=== PATIENT | male | born 1950 | race Caucasian/White ===

== ENCOUNTER 2018-08-13 19:04 | Inpatient (IN) | payer OTHER ==
[~2018-08-13] VITALS: Ht 177.8 cm; Wt 115.7 kg
[~2018-08-13 19:04] MED LIST: ASPI500T13 PO; ATOR40TA PO; CITRACAL CALCIUM PO; CLOP75TA PO; CLOP75TA52 PO; EZET10TA18 PO; FOLI0.8T2 PO; FOLIC ACID PO; FURO-92 PO; LEVO100C2 PO; LEVO100T5 PO; LIRA0.6P; LIRA0.6P PO; METF10002 PO; METO50TA4 PO; METO50TA82 PO; MULT-658 PO; NIAC1000 PO; PIOG45TA20 PO; PIOG45TA4 PO; POTA10TA PO; POTA20TA14 PO; SAW500CA PO; TADA10TA PO; TRAN4TAB11 PO; ZINC50TA44 PO; [UNRECOGNIZED DRUG - OTHER] PO; [UNRECOGNIZED DRUG - OTHER] PO
--- NOTE | 2018-08-13 19:08 | NUR ---
ERP AT BEDSIDE.
[2018-08-13] MEDS ORDERED: ENOXAPARIN 100 MG/ML SQ ONE (19:30)
[2018-08-13] MEDS ORDERED: SODIUM CHLORIDE FLUSH 10ML SYR IVF ONE (19:30)
--- NOTE | 2018-08-13 19:32 | NUR ---
PORTABLE CXR DONE AT BEDSIDE.
[2018-08-13 19:36] LABS: BASOPHILS # (AUTO) 0.05 x10^3/uL (0-0.1); BASOPHILS % (AUTO) 1 % (0-1); EOSINOPHILS # (AUTO) 0.19 x10^3/uL (0-0.4); EOSINOPHILS % (AUTO) 2 % (1-7); LYMPHOCYTES # (AUTO) 3.99 x10^3/uL (1-3.4); LYMPHOCYTES % (AUTO) 37 % (22-44); MD NO; MEAN CORPUSCULAR HEMOGLOBIN 32.5 pg (27.5-34.5); MEAN CORPUSCULAR HGB CONC 33.6 g/dL (33.2-36.2); MEAN CORPUSCULAR VOLUME 96.8 fL (81-97); MEAN PLATELET VOLUME 8.7 fL (7.4-10.4); MONOCYTES # (AUTO) 1.17 x10^3/uL (0.2-0.8); MONOCYTES % (AUTO) 11 % (2-9); NEUTROPHILS # (AUTO) 5.29 x10^3/uL (1.8-6.8); NEUTROPHILS % (AUTO) 50 % (42-75); PLATELET COUNT 156 x10^3/uL (130-400); RED BLOOD COUNT 5.44 x10^6/uL (4.38-5.82); RED CELL DISTRIBUTION WIDTH 14.5 % (9.4-14.8)
[2018-08-13 19:48] LABS: ALANINE AMINOTRANSFERASE 55 U/L (12-78); ALBUMIN 4.2 g/dL (3.4-5.0); ANION GAP 11 mmol/L (5-15); CALCIUM 10.3 mg/dL (8.5-10.1); CHLORIDE 105 mmol/L (98-107); CREATININE 1.12 mg/dL (0.7-1.3)
[2018-08-13 19:52] LABS: ALKALINE PHOSPHATASE 86 U/L (45-117); BILIRUBIN,TOTAL 0.7 mg/dL (0.2-1.0); TOTAL PROTEIN 8.2 g/dL (6.4-8.2); TROPONIN I < 0.015 ng/mL (0.000-0.045)
[2018-08-13 19:56] LABS: INTERNATIONAL NORMALIZED RATIO 1.04 (0.93-1.1)
[2018-08-13] MEDS ORDERED: EMPA25TA PO (20:36)
[2018-08-13] MEDS ORDERED: CHOL100012 PO (20:36)
[2018-08-13] MEDS ORDERED: ASCO10004 PO (20:36)
--- NOTE | 2018-08-13 20:40 | NUR ---
HOSPITALIST AT BEDSIDE.
[2018-08-13] MEDS ORDERED: POLYETHYLENE GLYCOL 17 GM PACKET PO PRN (21:30)
[2018-08-13] MEDS ORDERED: NITROGLYCERIN 0.4 MG BOTTLE (25 TABS) SL PRN (21:30)
[2018-08-13] MEDS ORDERED: BISACODYL 10 MG SUPP PR PRN (21:30)
[2018-08-13] MEDS ORDERED: FUROSEMIDE 40 MG PO SCH (21:30)
[2018-08-13] MEDS ORDERED: morphine SULFATE 10 MG/ML, 1ML IVPush PRN (21:30)
[2018-08-13] MEDS ORDERED: ONDANSETRON 2MG/ML, 2ML IVPush PRN (21:30)
[2018-08-13 21:57] LABS: HEMOGLOBIN A1C 7.8 % (4.2-6.3)
[2018-08-13] MEDS: ATORVASTATIN 40 MG TABLET PO SCH (22:37)
[2018-08-13] MEDS: SODIUM CHLORIDE FLUSH 10ML SYR IVF SCH (22:38)
[2018-08-13] MEDS: METOPROLOL TARTRATE 50 MG TABLET PO SCH (22:38)
[2018-08-13] MEDS: NIACIN 500 MG TABLET.ER PO SCH (22:39)
[2018-08-13] MEDS: INSULIN LISPRO 100 UNITS/ML, PEN SQ-INSULIN SCH (23:20)
[2018-08-14 00:24] VITALS: BP 102/63
[2018-08-14] MEDS: SODIUM CHLORIDE 0.9% 1,000 ML IV SCH (02:01)
[2018-08-14 02:52] LABS: TROPONIN I < 0.015 ng/mL (0.000-0.045)
[2018-08-14 05:54] LABS: TROPONIN I < 0.015 ng/mL (0.000-0.045)
[2018-08-14] MEDS: LEVOTHYROXINE 125 MCG TABLET PO SCH (06:06)
[2018-08-14] MEDS: ASPIRIN 325 MG TABLET EC PO SCH (06:06)
[2018-08-14 06:07] VITALS: BP 121/78
[2018-08-14 06:26] LABS: ALANINE AMINOTRANSFERASE 42 U/L (12-78); ALBUMIN 3.7 g/dL (3.4-5.0); ANION GAP 13 mmol/L (5-15); CALCIUM 8.9 mg/dL (8.5-10.1); CHLORIDE 105 mmol/L (98-107); CREATININE 1.12 mg/dL (0.7-1.3)
[2018-08-14 06:28] LABS: ALKALINE PHOSPHATASE 57 U/L (45-117); BILIRUBIN,TOTAL 0.9 mg/dL (0.2-1.0)
[2018-08-14 06:49] LABS: BASOPHILS # (AUTO) 0.05 x10^3/uL (0-0.1); BASOPHILS % (AUTO) 1 % (0-1); EOSINOPHILS # (AUTO) 0.23 x10^3/uL (0-0.4); EOSINOPHILS % (AUTO) 2 % (1-7); LYMPHOCYTES # (AUTO) 3.14 x10^3/uL (1-3.4); LYMPHOCYTES % (AUTO) 31 % (22-44); MD NO; MEAN CORPUSCULAR HEMOGLOBIN 32.6 pg (27.5-34.5); MEAN CORPUSCULAR HGB CONC 33.6 g/dL (33.2-36.2); MONOCYTES # (AUTO) 1.14 x10^3/uL (0.2-0.8); MONOCYTES % (AUTO) 11 % (2-9); NEUTROPHILS # (AUTO) 5.73 x10^3/uL (1.8-6.8); NEUTROPHILS % (AUTO) 56 % (42-75); PLATELET COUNT 145 x10^3/uL (130-400); RED CELL DISTRIBUTION WIDTH 14.2 % (9.4-14.8)
[2018-08-14 07:00] VITALS: BP 112/67
[2018-08-14] MEDS: INSULIN LISPRO 100 UNITS/ML, PEN SQ-INSULIN SCH ×4 (07:00→21:05)
[2018-08-14] MEDS: ASCORBIC ACID 500 MG TABLET PO SCH (08:59)
[2018-08-14] MEDS: FOLIC ACID 1 MG TABLET PO SCH (08:59)
[2018-08-14] MEDS: CLOPIDOGREL 75 MG TABLET PO SCH (08:59)
[2018-08-14] MEDS: SENNA/DOCUSATE TABLET PO SCH (09:00)
[2018-08-14] MEDS: (Empagliflozin (Jardiance) 25 MG) HOMEMEDPO SCH (09:00)
[2018-08-14] MEDS: METOPROLOL TARTRATE 50 MG TABLET PO SCH ×2 (09:00→21:04)
[2018-08-14] MEDS: EZETIMIBE 10 MG TABLET PO SCH (09:00)
[2018-08-14] MEDS ORDERED: NIACIN 2000 MG SCH (09:00)
[2018-08-14] MEDS: CHOLECALCIFEROL 1,000 UNIT TABLET PO SCH ×2 (09:00)
[2018-08-14] MEDS: SODIUM CHLORIDE FLUSH 10ML SYR IVF SCH ×2 (09:07→21:04)
[2018-08-14] MEDS ORDERED: SODIUM CHLORIDE 0.9% 1,000 ML IV ONE (11:13)
[2018-08-14 13:15] VITALS: BP 108/73
[2018-08-14] MEDS ORDERED: MIDAZOLAM 1 MG/ML, 5ML ONE (15:49)
[2018-08-14] MEDS ORDERED: FENTANYL PF 100 MCG/2ML ONE (15:49)
[2018-08-14] MEDS ORDERED: HEPARIN 1,000 UNITS/ML, 10ML ONE (15:49)
[2018-08-14] MEDS ORDERED: VERAPAMIL 2.5 MG/ML, 2ML ONE (15:49)
[2018-08-14] MEDS ORDERED: TICAGRELOR 90 MG TABLET ONE (15:49)
[2018-08-14] MEDS ORDERED: BIVALIRUDIN 250 MG ONE (15:49)
[2018-08-14 19:00] VITALS: BP 117/69
[2018-08-14 21:00] VITALS: BP 104/70
[2018-08-14] MEDS ORDERED: ATORVASTATIN 40 MG TABLET PO SCH (21:00)
[2018-08-14] MEDS ORDERED: NIACIN 500 MG TABLET.ER PO SCH (21:00)
[2018-08-14] MEDS: ATORVASTATIN 40 MG TABLET PO SCH (21:04)
[2018-08-14] MEDS: NIACIN 500 MG TABLET.ER PO SCH (21:04)
[2018-08-15 00:15] VITALS: BP 104/63
[2018-08-15] MEDS: SODIUM CHLORIDE 0.9% 1,000 ML IV SCH ×2 (01:19→15:45)
[2018-08-15] MEDS: LEVOTHYROXINE 125 MCG TABLET PO SCH (06:17)
[2018-08-15] MEDS: ASPIRIN 325 MG TABLET EC PO SCH (06:17)
[2018-08-15 07:05] VITALS: BP 118/70
[2018-08-15] MEDS: INSULIN LISPRO 100 UNITS/ML, PEN SQ-INSULIN SCH ×4 (08:23→20:48)
[2018-08-15] MEDS ORDERED: SODIUM CHLORIDE 0.9% 1,000 ML IV ONE (08:53)
[2018-08-15] MEDS: CHOLECALCIFEROL 1,000 UNIT TABLET PO SCH ×2 (09:00→09:14)
[2018-08-15] MEDS: CLOPIDOGREL 75 MG TABLET PO SCH (09:14)
[2018-08-15] MEDS: SENNA/DOCUSATE TABLET PO SCH (09:14)
[2018-08-15] MEDS: FOLIC ACID 1 MG TABLET PO SCH (09:14)
[2018-08-15] MEDS: EZETIMIBE 10 MG TABLET PO SCH (09:14)
[2018-08-15] MEDS: ASCORBIC ACID 500 MG TABLET PO SCH (09:14)
[2018-08-15] MEDS: METOPROLOL TARTRATE 50 MG TABLET PO SCH ×2 (09:15→20:41)
[2018-08-15] MEDS: SODIUM CHLORIDE FLUSH 10ML SYR IVF SCH ×2 (09:15→20:41)
[2018-08-15] MEDS ORDERED: FENTANYL PF 100 MCG/2ML ONE ×2 (09:30→09:56)
[2018-08-15] MEDS ORDERED: VERAPAMIL 2.5 MG/ML, 2ML ONE (09:31)
[2018-08-15] MEDS ORDERED: LIDOCAINE 2%, 20ML ONE (09:31)
[2018-08-15] MEDS ORDERED: HEPARIN 1,000 UNITS/ML, 10ML ONE (09:31)
[2018-08-15] MEDS ORDERED: NITROGLYCERIN 5 MG/ML, 10ML ONE (09:31)
[2018-08-15] MEDS ORDERED: TICAGRELOR 90 MG TABLET ONE (09:31)
[2018-08-15] MEDS ORDERED: BIVALIRUDIN 250 MG ONE ×3 (09:31→10:04)
[2018-08-15] MEDS ORDERED: MIDAZOLAM 1 MG/ML, 2ML ONE (09:42)
[2018-08-15] MEDS ORDERED: MIDAZOLAM 1 MG/ML, 5ML ONE (09:56)
[2018-08-15] MEDS ORDERED: NITROGLYCERIN 0.4 MG BOTTLE (25 TABS) SL ONE (11:46)
[2018-08-15] MEDS: (Empagliflozin (Jardiance) 25 MG) HOMEMEDPO SCH (12:00)
[2018-08-15] MEDS ORDERED: MORPHINE SULFATE 4 MG/ML, 1ML ONE (12:27)
[2018-08-15] MEDS ORDERED: MORPHINE SULFATE 4 MG/ML, 1ML IV PRN (13:00)
[2018-08-15] MEDS: ISOSORBIDE MONONITRATE ER 60 MG TABLET PO SCH (13:13)
[2018-08-15] MEDS: NIACIN 500 MG TABLET.ER PO SCH (20:42)
[2018-08-15] MEDS: ATORVASTATIN 40 MG TABLET PO SCH (20:42)
[2018-08-16] MEDS: ACETAMINOPHEN 325 MG TABLET PO PRN (00:32)
[2018-08-16] MEDS: SODIUM CHLORIDE 0.9% 1,000 ML IV SCH ×3 (00:32→22:38)
[2018-08-16 04:00] VITALS: BP 95/52
[2018-08-16 04:45] LABS: ANION GAP 12 mmol/L (5-15); CALCIUM 8.3 mg/dL (8.5-10.1); CHLORIDE 109 mmol/L (98-107)
[2018-08-16 04:46] LABS: CREATININE 0.91 mg/dL (0.7-1.3)
[2018-08-16 04:53] LABS: BASOPHILS # (AUTO) 0.03 x10^3/uL (0-0.1); BASOPHILS % (AUTO) 0 % (0-1); EOSINOPHILS # (AUTO) 0.18 x10^3/uL (0-0.4); EOSINOPHILS % (AUTO) 2 % (1-7); LYMPHOCYTES # (AUTO) 2.14 x10^3/uL (1-3.4); LYMPHOCYTES % (AUTO) 24 % (22-44); MD NO; MEAN CORPUSCULAR HEMOGLOBIN 32.9 pg (27.5-34.5); MEAN CORPUSCULAR HGB CONC 33.9 g/dL (33.2-36.2); MEAN CORPUSCULAR VOLUME 97.1 fL (81-97); MEAN PLATELET VOLUME 8.7 fL (7.4-10.4); MONOCYTES # (AUTO) 1.16 x10^3/uL (0.2-0.8); MONOCYTES % (AUTO) 13 % (2-9); NEUTROPHILS # (AUTO) 5.49 x10^3/uL (1.8-6.8); NEUTROPHILS % (AUTO) 61 % (42-75); PLATELET COUNT 131 x10^3/uL (130-400); RED BLOOD COUNT 4.49 x10^6/uL (4.38-5.82); RED CELL DISTRIBUTION WIDTH 14.3 % (9.4-14.8)
[2018-08-16] MEDS: LEVOTHYROXINE 125 MCG TABLET PO SCH (05:57)
[2018-08-16] MEDS: ASPIRIN 325 MG TABLET EC PO SCH (06:04)
[2018-08-16] MEDS: INSULIN LISPRO 100 UNITS/ML, PEN SQ-INSULIN SCH ×4 (06:43→20:23)
[2018-08-16] MEDS: CHOLECALCIFEROL 1,000 UNIT TABLET PO SCH ×2 (07:39→07:53)
[2018-08-16] MEDS: SENNA/DOCUSATE TABLET PO SCH (07:39)
[2018-08-16] MEDS: METOPROLOL TARTRATE 50 MG TABLET PO SCH ×2 (07:51→20:22)
[2018-08-16] MEDS: ASCORBIC ACID 500 MG TABLET PO SCH (07:51)
[2018-08-16] MEDS: EZETIMIBE 10 MG TABLET PO SCH (07:51)
[2018-08-16] MEDS: FOLIC ACID 1 MG TABLET PO SCH (07:52)
[2018-08-16] MEDS: ISOSORBIDE MONONITRATE ER 60 MG TABLET PO SCH (07:52)
[2018-08-16] MEDS: SODIUM CHLORIDE FLUSH 10ML SYR IVF SCH ×2 (07:52→20:23)
[2018-08-16] MEDS: (Empagliflozin (Jardiance) 25 MG) HOMEMEDPO SCH (07:52)
[2018-08-16] MEDS ORDERED: MAGNESIUM SULFATE PMX 4GM/100M 100 ML IV ONE (08:00)
[2018-08-16 08:56] VITALS: BP 96/54
[2018-08-16 15:07] VITALS: BP 108/63
[2018-08-16 20:02] VITALS: BP 135/70
[2018-08-16] MEDS: NIACIN 500 MG TABLET.ER PO SCH (20:22)
[2018-08-16] MEDS: ATORVASTATIN 40 MG TABLET PO SCH (20:22)
[2018-08-17 01:22] VITALS: BP 112/66
[2018-08-17] MEDS ORDERED: LEVOTHYROXINE 25 MCG TABLET ONE (05:40)
[2018-08-17] MEDS ORDERED: LEVOTHYROXINE 100 MCG TABLET ONE (05:40)
[2018-08-17] MEDS: SODIUM CHLORIDE 0.9% 1,000 ML IV SCH (05:54)
[2018-08-17] MEDS: ASPIRIN 325 MG TABLET EC PO SCH (05:54)
[2018-08-17] MEDS: LEVOTHYROXINE 125 MCG TABLET PO SCH (05:54)
[2018-08-17] MEDS: INSULIN LISPRO 100 UNITS/ML, PEN SQ-INSULIN SCH ×4 (07:00→20:27)
[2018-08-17 07:40] VITALS: BP 110/65
[2018-08-17] MEDS: CHOLECALCIFEROL 1,000 UNIT TABLET PO SCH ×2 (09:00→09:23)
[2018-08-17] MEDS: (Empagliflozin (Jardiance) 25 MG) HOMEMEDPO SCH (09:00)
[2018-08-17] MEDS: SENNA/DOCUSATE TABLET PO SCH (09:00)
[2018-08-17] MEDS: ISOSORBIDE MONONITRATE ER 60 MG TABLET PO SCH (09:21)
[2018-08-17] MEDS: FOLIC ACID 1 MG TABLET PO SCH (09:22)
[2018-08-17] MEDS: METOPROLOL TARTRATE 50 MG TABLET PO SCH ×2 (09:22→20:23)
[2018-08-17] MEDS: ASCORBIC ACID 500 MG TABLET PO SCH (09:23)
[2018-08-17] MEDS: EZETIMIBE 10 MG TABLET PO SCH (09:23)
[2018-08-17] MEDS: SODIUM CHLORIDE FLUSH 10ML SYR IVF SCH ×2 (09:26→20:24)
[2018-08-17 15:59] VITALS: BP 101/64
[2018-08-17] MEDS: ACETAMINOPHEN 325 MG TABLET PO PRN (17:10)
[2018-08-17 18:49] VITALS: BP 105/61
[2018-08-17] MEDS: ATORVASTATIN 40 MG TABLET PO SCH (20:23)
[2018-08-17] MEDS: NIACIN 500 MG TABLET.ER PO SCH (20:23)
[2018-08-18 00:31] VITALS: BP 98/61
[2018-08-18] MEDS: ACETAMINOPHEN 325 MG TABLET PO PRN ×2 (02:57→14:43)
[2018-08-18] MEDS ORDERED: LEVOTHYROXINE 100 MCG TABLET ONE (05:57)
[2018-08-18] MEDS ORDERED: LEVOTHYROXINE 25 MCG TABLET ONE (05:57)
[2018-08-18] MEDS: ASPIRIN 325 MG TABLET EC PO SCH (05:58)
[2018-08-18] MEDS: LEVOTHYROXINE 125 MCG TABLET PO SCH (05:59)
[2018-08-18 06:44] VITALS: BP 123/71
[2018-08-18] MEDS: INSULIN LISPRO 100 UNITS/ML, PEN SQ-INSULIN SCH ×4 (07:00→21:37)
[2018-08-18] MEDS: EZETIMIBE 10 MG TABLET PO SCH (08:04)
[2018-08-18] MEDS: ASCORBIC ACID 500 MG TABLET PO SCH (08:05)
[2018-08-18] MEDS: CHOLECALCIFEROL 1,000 UNIT TABLET PO SCH ×2 (08:05→08:13)
[2018-08-18] MEDS: ISOSORBIDE MONONITRATE ER 60 MG TABLET PO SCH (08:05)
[2018-08-18] MEDS: METOPROLOL TARTRATE 50 MG TABLET PO SCH ×2 (08:06→21:32)
[2018-08-18] MEDS: FOLIC ACID 1 MG TABLET PO SCH (08:06)
[2018-08-18] MEDS: SODIUM CHLORIDE FLUSH 10ML SYR IVF SCH ×2 (08:08→21:32)
[2018-08-18] MEDS: (Empagliflozin (Jardiance) 25 MG) HOMEMEDPO SCH (08:09)
[2018-08-18] MEDS: SENNA/DOCUSATE TABLET PO SCH (08:13)
[2018-08-18 13:12] VITALS: BP 121/65
[2018-08-18 19:40] VITALS: BP 116/65
[2018-08-18] MEDS: ATORVASTATIN 40 MG TABLET PO SCH (21:32)
[2018-08-18] MEDS: NIACIN 500 MG TABLET.ER PO SCH (21:32)
[2018-08-19 02:03] VITALS: BP 98/62
[2018-08-19] MEDS: LEVOTHYROXINE 125 MCG TABLET PO SCH (06:44)
[2018-08-19] MEDS: ASPIRIN 325 MG TABLET EC PO SCH (06:44)
[2018-08-19 07:19] VITALS: BP 117/67
[2018-08-19] MEDS ORDERED: CEFUROXIME 1.5 GM in SODIUM CHLORIDE 0.9% 50 ML IVPB PRN (07:30)
[2018-08-19] MEDS ORDERED: DEXMEDETOMIDINE 200 MCG in SODIUM CHLORIDE 0.9% 48 ML IV SCH (07:30)
[2018-08-19] MEDS ORDERED: REGULAR INSULIN 62.5 UNITS in SODIUM CHLORIDE 0.9% 249.375 ML IV PRN (07:30)
[2018-08-19] MEDS ORDERED: EPINEPHRINE 2 MG in SODIUM CHLORIDE 0.9% 248 ML IV SCH (07:30)
[2018-08-19] MEDS ORDERED: POTASSIUM CHLORIDE 80 MEQ, SODIUM BICARBONATE 8.4% 10 MEQ, MAGNESIUM SULFATE 0.5 GM, LI... IV PRN (07:30)
[2018-08-19] MEDS ORDERED: MANNITOL PMX 20% 500 ML IVPB PRN (07:30)
[2018-08-19] MEDS ORDERED: PHENYLEPHRINE 10 MG in SODIUM CHLORIDE 0.9% 249 ML IV PRN (07:30)
[2018-08-19] MEDS ORDERED: VANCOMYCIN 1,600 MG in SODIUM CHLORIDE 0.9% 250 ML IV PRN (07:30)
[2018-08-19] MEDS: INSULIN LISPRO 100 UNITS/ML, PEN SQ-INSULIN SCH ×4 (08:38→21:22)
[2018-08-19] MEDS: SENNA/DOCUSATE TABLET PO SCH (08:38)
[2018-08-19] MEDS: ISOSORBIDE MONONITRATE ER 60 MG TABLET PO SCH (08:39)
[2018-08-19] MEDS: METOPROLOL TARTRATE 50 MG TABLET PO SCH ×2 (08:39→21:08)
[2018-08-19] MEDS: ASCORBIC ACID 500 MG TABLET PO SCH (08:39)
[2018-08-19] MEDS: EZETIMIBE 10 MG TABLET PO SCH (08:40)
[2018-08-19] MEDS: CHOLECALCIFEROL 1,000 UNIT TABLET PO SCH ×2 (08:40)
[2018-08-19] MEDS: FOLIC ACID 1 MG TABLET PO SCH (08:40)
[2018-08-19] MEDS: SODIUM CHLORIDE FLUSH 10ML SYR IVF SCH ×3 (08:41→21:09)
[2018-08-19] MEDS: (Empagliflozin (Jardiance) 25 MG) HOMEMEDPO SCH (08:42)
[2018-08-19] MEDS ORDERED: ACETAMINOPHEN 325 MG TABLET PO PRN (13:00)
[2018-08-19] MEDS ORDERED: INSULIN LISPRO 100 UNITS/ML, PEN SQ-INSULIN SCH (13:00)
[2018-08-19 13:14] LABS: PROTHROMBIN TIME 10.6 Seconds (9.6-11.5)
[2018-08-19 13:16] LABS: ALANINE AMINOTRANSFERASE 111 U/L (12-78); ALBUMIN 3.5 g/dL (3.4-5.0); ANION GAP 10 mmol/L (5-15); CALCIUM 9.1 mg/dL (8.5-10.1); CHLORIDE 106 mmol/L (98-107)
[2018-08-19 13:19] LABS: ALKALINE PHOSPHATASE 74 U/L (45-117); BASOPHILS # (AUTO) 0.04 x10^3/uL (0-0.1); BASOPHILS % (AUTO) 1 % (0-1); BILIRUBIN,TOTAL 0.7 mg/dL (0.2-1.0); EOSINOPHILS # (AUTO) 0.24 x10^3/uL (0-0.4); EOSINOPHILS % (AUTO) 3 % (1-7); LYMPHOCYTES # (AUTO) 2.23 x10^3/uL (1-3.4); LYMPHOCYTES % (AUTO) 32 % (22-44); MD NO; MEAN CORPUSCULAR HEMOGLOBIN 32.2 pg (27.5-34.5); MEAN CORPUSCULAR HGB CONC 33.6 g/dL (33.2-36.2); MEAN PLATELET VOLUME 9.2 fL (7.4-10.4); MONOCYTES # (AUTO) 0.88 x10^3/uL (0.2-0.8); MONOCYTES % (AUTO) 13 % (2-9); NEUTROPHILS # (AUTO) 3.58 x10^3/uL (1.8-6.8); NEUTROPHILS % (AUTO) 51 % (42-75); PLATELET COUNT 147 x10^3/uL (130-400); RED BLOOD COUNT 4.96 x10^6/uL (4.38-5.82); RED CELL DISTRIBUTION WIDTH 14.1 % (9.4-14.8); TOTAL PROTEIN 7.2 g/dL (6.4-8.2)
[2018-08-19 13:37] VITALS: BP 114/70
[2018-08-19 13:45] LABS: HEMOGLOBIN A1C 8.3 % (4.2-6.3)
[2018-08-19 14:46] LABS: MICROSCOPIC NOT IND
[2018-08-19] MEDS: ACETAMINOPHEN 325 MG TABLET PO PRN (15:54)
[2018-08-19 19:50] VITALS: BP 121/72
[2018-08-19] MEDS: ATORVASTATIN 40 MG TABLET PO SCH (21:07)
[2018-08-19] MEDS: NIACIN 500 MG TABLET.ER PO SCH (21:08)
[2018-08-19] MEDS ORDERED: CHLORHEXIDINE 15 ML UDC MM PRN (22:00)
[2018-08-19] MEDS ORDERED: ALBUMIN HUMAN 5% 500 ML IV PRN (22:00)
[2018-08-19] MEDS: MUPIROCIN OINT 2%, 22GM TP SCH (22:33)
[2018-08-20 04:45] VITALS: BP 112/73
[2018-08-20] MEDS: ASPIRIN 325 MG TABLET EC PO SCH (04:47)
[2018-08-20] MEDS: INSULIN LISPRO 100 UNITS/ML, PEN SQ-INSULIN SCH ×5 (04:48→20:23)
[2018-08-20] MEDS: MUPIROCIN OINT 2%, 22GM TP SCH ×2 (04:57→20:23)
[2018-08-20] MEDS ORDERED: METOPROLOL TARTRATE 25 MG TABLET PO ONE (05:00)
[2018-08-20] MEDS: LEVOTHYROXINE 125 MCG TABLET PO SCH (05:36)
[2018-08-20] MEDS ORDERED: VANCOMYCIN 1,500 MG in SODIUM CHLORIDE 0.9% 250 ML IVPB PRN (07:30)
[2018-08-20] MEDS ORDERED: AMINOCAPROIC ACID 250 MG/ML, 20ML ONE ×2 (07:48→07:49)
[2018-08-20] MEDS ORDERED: ROCURONIUM 10MG/ML,5ML ONE ×2 (07:48)
[2018-08-20 07:49] VITALS: BP 122/72
[2018-08-20] MEDS ORDERED: PROPOFOL 10 MG/ML, 20ML ONE (07:49)
[2018-08-20] MEDS ORDERED: MIDAZOLAM 10MG/2 ML ONE (07:49)
[2018-08-20] MEDS ORDERED: FENTANYL PF 250 MCG/5ML ONE ×5 (07:50→14:13)
[2018-08-20] MEDS: ISOSORBIDE MONONITRATE ER 60 MG TABLET PO SCH (09:00)
[2018-08-20] MEDS: CHOLECALCIFEROL 1,000 UNIT TABLET PO SCH (09:00)
[2018-08-20] MEDS: METOPROLOL TARTRATE 50 MG TABLET PO SCH (09:00)
[2018-08-20] MEDS: ASCORBIC ACID 500 MG TABLET PO SCH (09:00)
[2018-08-20] MEDS: SENNA/DOCUSATE TABLET PO SCH (09:00)
[2018-08-20] MEDS: FOLIC ACID 1 MG TABLET PO SCH (09:00)
[2018-08-20] MEDS: EZETIMIBE 10 MG TABLET PO SCH (09:00)
[2018-08-20] MEDS: DOCUSATE 100 MG CAPSULE PO SCH ×2 (09:00→20:22)
[2018-08-20] MEDS: (Empagliflozin (Jardiance) 25 MG) HOMEMEDPO SCH (09:00)
[2018-08-20] MEDS: SODIUM CHLORIDE FLUSH 10ML SYR IVF SCH ×5 (09:10→20:24)
[2018-08-20] MEDS ORDERED: PAPAVERINE 30 MG/ML, 2ML ONE (09:45)
[2018-08-20] MEDS ORDERED: HEPARIN 1,000 UNITS/ML, 10ML ONE (09:45)
[2018-08-20 12:35] VITALS: BP 125/73
[2018-08-20] MEDS ORDERED: PROTAMINE SULFATE 10 MG/ML, 25ML ONE (15:22)
[2018-08-20] MEDS ORDERED: CALCIUM CHLORIDE 10%, 10ML SYR ONE (15:22)
[2018-08-20] MEDS ORDERED: SODIUM CHLORIDE 0.9% IVPB ONE (16:05)
[2018-08-20] MEDS ORDERED: DESMOPRESSIN IVPB ONE (16:05)
[2018-08-20] MEDS ORDERED: SODIUM CHLORIDE 0.9% 1,000 ML IV PRN (16:21)
[2018-08-20] MEDS ORDERED: REGULAR INSULIN 62.5 UNITS in SODIUM CHLORIDE 0.9% 249.375 ML IV PRN (16:21)
[2018-08-20] MEDS ORDERED: VASOPRESSIN 50 UNIT in SODIUM CHLORIDE 0.9% 247.5 ML IV PRN (16:21)
[2018-08-20] MEDS ORDERED: DOBUTAMINE 250 MG in SODIUM CHLORIDE 0.9% 230 ML IV PRN (16:21)
[2018-08-20] MEDS ORDERED: NITROGLYCERIN/D5W PMX 250 ML IV PRN (16:21)
[2018-08-20] MEDS ORDERED: DEXMEDETOMIDINE 200 MCG in SODIUM CHLORIDE 0.9% 48 ML IV PRN (16:21)
[2018-08-20] MEDS ORDERED: INSULIN REGULAR 100 UNITS/ML, 3ML VIAL IVPush PRN (16:30)
[2018-08-20] MEDS ORDERED: EPINEPHRINE 2 MG in SODIUM CHLORIDE 0.9% 248 ML IV PRN (16:30)
[2018-08-20] MEDS ORDERED: ACETAMINOPHEN 650 MG SUPP PR PRN (16:30)
[2018-08-20] MEDS ORDERED: ONDANSETRON 2MG/ML, 2ML IVPush PRN (16:30)
[2018-08-20] MEDS ORDERED: DEXTROSE 50%, 50ML SYRINGE IVPush PRN (16:30)
[2018-08-20] MEDS ORDERED: BISACODYL 10 MG SUPP PR PRN (16:30)
[2018-08-20] MEDS ORDERED: BISACODYL 5 MG EC TABLET PO PRN (16:30)
[2018-08-20] MEDS ORDERED: PROCHLORPERAZINE 5 MG/ML, 2ML IVPush PRN (16:30)
[2018-08-20] MEDS ORDERED: GLUCAGON 1 MG IM PRN (16:30)
[2018-08-20] MEDS: KSCALE TO 4.5 IV SCH ×2 (16:30→22:30)
[2018-08-20] MEDS ORDERED: ACETAMINOPHEN 325 MG TABLET PO PRN (16:30)
[2018-08-20] MEDS ORDERED: DEXTROSE 4 GM TAB.CHEW PO PRN (16:30)
[2018-08-20] MEDS ORDERED: MIDAZOLAM 1 MG/ML, 5ML IVPush PRN (16:30)
[2018-08-20] MEDS ORDERED: morphine SULFATE 10 MG/ML, 1ML IVPush PRN (16:30)
[2018-08-20] MEDS ORDERED: SODIUM BICARB 8.4%, 50ML SYRINGE IV PRN (16:30)
[2018-08-20] MEDS: MAGNESIUM SULFATE 1 GM in SODIUM CHLORIDE 0.9% 50 ML IVPB SCH (17:27)
[2018-08-20 17:36] LABS: GLUCOSE BY BLOOD GAS ANALYZER 123 mg/dL (70-110); HEMOGLOBIN BY BLOOD GAS ANALYZ 13.5 g/dL (14.0-18.0); POTASSIUM BY BLOOD GAS ANALYZR 2.6 mmol/L (3.6-5.5)
[2018-08-20] MEDS ORDERED: MORPHINE SULFATE 4 MG/ML, 1ML ONE (17:36)
[2018-08-20 17:43] LABS: INTERNATIONAL NORMALIZED RATIO 1.26 (0.93-1.1); PROTHROMBIN TIME 13.2 Seconds (9.6-11.5)
[2018-08-20] MEDS ORDERED: POTASSIUM CHLORIDE 40 MEQ in SODIUM CHLORIDE 0.9% 100 ML IV ONE (18:30)
[2018-08-20] MEDS: LACTATED RINGERS 1,000 ML IV PRN ×4 (19:10→22:39)
[2018-08-20] MEDS: NIACIN 500 MG TABLET.ER PO SCH (20:22)
[2018-08-20] MEDS: ATORVASTATIN 40 MG TABLET PO SCH (20:22)
[2018-08-20] MEDS: CHLORHEXIDINE 15 ML UDC PO SCH (20:22)
[2018-08-20] MEDS: MUPIROCIN OINT 2%, 22GM NAS SCH (20:24)
[2018-08-20] MEDS: HYDROcodone/APAP 5/325 TABLET PO PRN (22:25)
[2018-08-20] MEDS: PHENYLEPHRINE 10 MG in SODIUM CHLORIDE 0.9% 249 ML IV PRN (23:25)
[2018-08-20] MEDS ORDERED: POTASSIUM CHLORIDE 30 MEQ in SODIUM CHLORIDE 0.9% 100 ML IV ONE (23:45)
[2018-08-21] MEDS: OXYcodone IR 5MG TABLET PO PRN ×8 (00:08→21:14)
[2018-08-21] MEDS: VANCOMYCIN 1,600 MG in SODIUM CHLORIDE 0.9% 250 ML IVPB SCH ×2 (01:26→12:51)
[2018-08-21] MEDS: HYDROcodone/APAP 5/325 TABLET PO PRN ×2 (02:39→12:23)
[2018-08-21] MEDS: PHENYLEPHRINE 10 MG in SODIUM CHLORIDE 0.9% 249 ML IV PRN (03:26)
[2018-08-21 04:00] VITALS: BP 105/60
[2018-08-21] MEDS: KSCALE TO 4.5 IV SCH ×2 (04:30→10:30)
[2018-08-21 05:22] LABS: ALBUMIN 3.1 g/dL (3.4-5.0); ANION GAP 10 mmol/L (5-15); CALCIUM 7.7 mg/dL (8.5-10.1); CHLORIDE 114 mmol/L (98-107); CREATININE 0.77 mg/dL (0.7-1.3)
[2018-08-21 05:27] LABS: BASOPHILS % (AUTO) 0 % (0-1); EOSINOPHILS % (AUTO) 0 % (1-7); LYMPHOCYTES # (AUTO) 0.87 x10^3/uL (1-3.4); LYMPHOCYTES % (AUTO) 7 % (22-44); MD NO; MEAN CORPUSCULAR HEMOGLOBIN 33.1 pg (27.5-34.5); MEAN CORPUSCULAR HGB CONC 33.7 g/dL (33.2-36.2); MEAN CORPUSCULAR VOLUME 98.2 fL (81-97); MEAN PLATELET VOLUME 8.9 fL (7.4-10.4); MONOCYTES # (AUTO) 1.53 x10^3/uL (0.2-0.8); MONOCYTES % (AUTO) 12 % (2-9); NEUTROPHILS # (AUTO) 10.18 x10^3/uL (1.8-6.8); NEUTROPHILS % (AUTO) 81 % (42-75); PLATELET COUNT 161 x10^3/uL (130-400); RED BLOOD COUNT 4.18 x10^6/uL (4.38-5.82); RED CELL DISTRIBUTION WIDTH 14.5 % (9.4-14.8)
[2018-08-21] MEDS: INSULIN LISPRO 100 UNITS/ML, PEN SQ-INSULIN SCH ×6 (07:00→21:15)
[2018-08-21] MEDS: LEVOTHYROXINE 125 MCG TABLET PO SCH (07:58)
[2018-08-21] MEDS: SODIUM CHLORIDE FLUSH 10ML SYR IVF SCH ×4 (08:41→21:52)
[2018-08-21] MEDS: ASPIRIN 325 MG TABLET EC PO SCH (08:42)
[2018-08-21] MEDS: SENNA/DOCUSATE TABLET PO SCH (08:42)
[2018-08-21] MEDS: METOPROLOL TARTRATE 25 MG TABLET PO/NG SCH ×2 (09:00→21:15)
[2018-08-21] MEDS: MUPIROCIN OINT 2%, 22GM NAS SCH ×2 (09:00→21:14)
[2018-08-21] MEDS: CHOLECALCIFEROL 1,000 UNIT TABLET PO SCH (09:08)
[2018-08-21] MEDS: ASPIRIN 81 MG TABLET EC PO SCH (09:08)
[2018-08-21] MEDS: FOLIC ACID 1 MG TABLET PO SCH (09:08)
[2018-08-21] MEDS: DOCUSATE 100 MG CAPSULE PO SCH ×2 (09:08→21:14)
[2018-08-21] MEDS: ASCORBIC ACID 500 MG TABLET PO SCH (09:08)
[2018-08-21] MEDS: CHLORHEXIDINE 15 ML UDC PO SCH ×2 (09:09→21:14)
[2018-08-21] MEDS: MUPIROCIN OINT 2%, 22GM TP SCH ×2 (09:09→21:00)
[2018-08-21] MEDS: EZETIMIBE 10 MG TABLET PO SCH (10:13)
[2018-08-21] MEDS: (Empagliflozin (Jardiance) 25 MG) HOMEMEDPO SCH (10:13)
[2018-08-21] MEDS: MAGNESIUM SULFATE 1 GM in SODIUM CHLORIDE 0.9% 50 ML IVPB SCH (18:35)
[2018-08-21] MEDS: ATORVASTATIN 40 MG TABLET PO SCH (21:14)
[2018-08-21] MEDS: NIACIN 500 MG TABLET.ER PO SCH (21:52)
[2018-08-22] MEDS: OXYcodone IR 5MG TABLET PO PRN ×8 (00:20→23:27)
[2018-08-22 04:00] VITALS: BP 121/56
[2018-08-22 04:35] LABS: BASOPHILS # (AUTO) 0.05 x10^3/uL (0-0.1); BASOPHILS % (AUTO) 0 % (0-1); EOSINOPHILS # (AUTO) 0.04 x10^3/uL (0-0.4); EOSINOPHILS % (AUTO) 0 % (1-7); LYMPHOCYTES # (AUTO) 1.24 x10^3/uL (1-3.4); LYMPHOCYTES % (AUTO) 10 % (22-44); MD NO; MEAN CORPUSCULAR HEMOGLOBIN 32.6 pg (27.5-34.5); MEAN CORPUSCULAR HGB CONC 33.7 g/dL (33.2-36.2); MEAN CORPUSCULAR VOLUME 96.6 fL (81-97); MEAN PLATELET VOLUME 8.7 fL (7.4-10.4); MONOCYTES # (AUTO) 1.15 x10^3/uL (0.2-0.8); MONOCYTES % (AUTO) 9 % (2-9); NEUTROPHILS # (AUTO) 9.79 x10^3/uL (1.8-6.8); NEUTROPHILS % (AUTO) 80 % (42-75); PLATELET COUNT 124 x10^3/uL (130-400); RED BLOOD COUNT 4.07 x10^6/uL (4.38-5.82); RED CELL DISTRIBUTION WIDTH 14.7 % (9.4-14.8)
[2018-08-22 04:45] LABS: ANION GAP 16 mmol/L (5-15); CALCIUM 8.2 mg/dL (8.5-10.1); CHLORIDE 108 mmol/L (98-107); CREATININE 0.71 mg/dL (0.7-1.3)
[2018-08-22] MEDS: LEVOTHYROXINE 125 MCG TABLET PO SCH (06:28)
[2018-08-22] MEDS ORDERED: MAGNESIUM HYDROXIDE 8%, 30ML UDC PO PRN (08:00)
[2018-08-22] MEDS: INSULIN LISPRO 100 UNITS/ML, PEN SQ-INSULIN SCH ×4 (08:11→21:00)
[2018-08-22] MEDS: EZETIMIBE 10 MG TABLET PO SCH (08:49)
[2018-08-22] MEDS: CHOLECALCIFEROL 1,000 UNIT TABLET PO SCH (08:49)
[2018-08-22] MEDS: ASCORBIC ACID 500 MG TABLET PO SCH (08:49)
[2018-08-22] MEDS: POTASSIUM CHLORIDE 10 MEQ TABLET.ER PO SCH (08:49)
[2018-08-22] MEDS: DOCUSATE 100 MG CAPSULE PO SCH ×2 (08:49→20:17)
[2018-08-22] MEDS: ASPIRIN 81 MG TABLET EC PO SCH (08:49)
[2018-08-22] MEDS: PIOGLITAZONE 15 MG TABLET PO SCH (08:50)
[2018-08-22] MEDS: CHLORHEXIDINE 15 ML UDC PO SCH (08:50)
[2018-08-22] MEDS: FUROSEMIDE 20 MG/2 ML IV SCH (08:50)
[2018-08-22] MEDS: SODIUM CHLORIDE FLUSH 10ML SYR IVF SCH ×3 (08:50→20:19)
[2018-08-22] MEDS: SENNA/DOCUSATE TABLET PO SCH (08:51)
[2018-08-22] MEDS: MUPIROCIN OINT 2%, 22GM TP SCH ×2 (08:51→19:27)
[2018-08-22] MEDS: (Empagliflozin (Jardiance) 25 MG) HOMEMEDPO SCH (08:51)
[2018-08-22] MEDS: FOLIC ACID 1 MG TABLET PO SCH (08:53)
[2018-08-22] MEDS: MUPIROCIN OINT 2%, 22GM NAS SCH ×2 (08:53→21:34)
[2018-08-22] MEDS: METOPROLOL TARTRATE 25 MG TABLET PO/NG SCH ×2 (09:03→20:16)
[2018-08-22] MEDS: ENOXAPARIN 40 MG/0.4 ML SQ SCH (14:10)
[2018-08-22] MEDS: MAGNESIUM SULFATE 1 GM in SODIUM CHLORIDE 0.9% 50 ML IVPB SCH (16:22)
[2018-08-22 19:00] VITALS: BP 101/67
[2018-08-22] MEDS: ATORVASTATIN 40 MG TABLET PO SCH (20:16)
[2018-08-22] MEDS: NIACIN 500 MG TABLET.ER PO SCH (20:16)
[2018-08-22] MEDS ORDERED: INSULIN LISPRO 100 UNITS/ML, PEN SQ-INSULIN SCH (21:00)
[2018-08-23 01:48] VITALS: BP 110/70
[2018-08-23] MEDS: OXYcodone IR 5MG TABLET PO PRN ×4 (02:43→19:42)
[2018-08-23 05:30] LABS: ANION GAP 10 mmol/L (5-15); CALCIUM 8.3 mg/dL (8.5-10.1); CHLORIDE 108 mmol/L (98-107); CREATININE 1.01 mg/dL (0.7-1.3)
[2018-08-23] MEDS: LEVOTHYROXINE 125 MCG TABLET PO SCH (06:02)
[2018-08-23 06:05] LABS: MD YES; MEAN CORPUSCULAR HEMOGLOBIN 33.1 pg (27.5-34.5); MEAN CORPUSCULAR HGB CONC 33.8 g/dL (33.2-36.2); MEAN CORPUSCULAR VOLUME 97.9 fL (81-97); MEAN PLATELET VOLUME 8.8 fL (7.4-10.4); PLATELET COUNT 133 x10^3/uL (130-400); RED BLOOD COUNT 3.95 x10^6/uL (4.38-5.82); RED CELL DISTRIBUTION WIDTH 14.5 % (9.4-14.8)
[2018-08-23 06:08] LABS: BAND#(MANUAL) 0.51 x10^3/uL; BANDS%(MANUAL) 4 % (0-7); EOS#(MANUAL) 0.26 x10^3/uL (0.0-0.4); EOS% (MANUAL) 2 % (1-7); LYMPH#(MANUAL) 1.02 x10^3/uL (1-3.4); LYMPHS% (MANUAL) 8 % (22-44); MONOS#(MANUAL) 0.51 x10^3/uL (0.3-2.7); MONOS% (MANUAL) 4 % (2-9); SEGS% (MANUAL) 82 % (42-75)
[2018-08-23 06:09] LABS: <PLATELET ESTIMATE> ADEQUATE; <PLT MORPHOLOGY> NORMAL PLT MORPH; <RBC MORPHOLOGY> NORMAL
[2018-08-23] MEDS: INSULIN LISPRO 100 UNITS/ML, PEN SQ-INSULIN SCH ×4 (07:00→19:53)
[2018-08-23 07:46] VITALS: BP 111/70
[2018-08-23] MEDS: CHOLECALCIFEROL 1,000 UNIT TABLET PO SCH (08:17)
[2018-08-23] MEDS: PIOGLITAZONE 15 MG TABLET PO SCH (08:18)
[2018-08-23] MEDS: ASCORBIC ACID 500 MG TABLET PO SCH (08:18)
[2018-08-23] MEDS: CLOPIDOGREL 75 MG TABLET PO SCH (08:18)
[2018-08-23] MEDS: SENNA/DOCUSATE TABLET PO SCH (08:18)
[2018-08-23] MEDS: ASPIRIN 81 MG TABLET EC PO SCH (08:18)
[2018-08-23] MEDS: DOCUSATE 100 MG CAPSULE PO SCH ×2 (08:18→19:42)
[2018-08-23] MEDS: POTASSIUM CHLORIDE 10 MEQ TABLET.ER PO SCH (08:18)
[2018-08-23] MEDS: MUPIROCIN OINT 2%, 22GM NAS SCH ×2 (08:18→19:42)
[2018-08-23] MEDS: FUROSEMIDE 20 MG/2 ML IV SCH (08:19)
[2018-08-23] MEDS: (Empagliflozin (Jardiance) 25 MG) HOMEMEDPO SCH (08:19)
[2018-08-23] MEDS: SODIUM CHLORIDE FLUSH 10ML SYR IVF SCH ×4 (08:19→19:42)
[2018-08-23] MEDS: EZETIMIBE 10 MG TABLET PO SCH (08:24)
[2018-08-23] MEDS: FOLIC ACID 1 MG TABLET PO SCH (08:24)
[2018-08-23] MEDS: METOPROLOL TARTRATE 25 MG TABLET PO/NG SCH ×2 (08:25→19:43)
[2018-08-23] MEDS: MUPIROCIN OINT 2%, 22GM TP SCH ×2 (08:25→19:46)
[2018-08-23 13:45] VITALS: BP 103/68
[2018-08-23] MEDS: ENOXAPARIN 40 MG/0.4 ML SQ SCH (14:29)
[2018-08-23] MEDS: ATORVASTATIN 40 MG TABLET PO SCH (19:42)
[2018-08-23] MEDS: NIACIN 500 MG TABLET.ER PO SCH (19:42)
[2018-08-23 21:12] VITALS: BP 104/63
[2018-08-24] MEDS: OXYcodone IR 5MG TABLET PO PRN ×5 (01:54→23:02)
[2018-08-24 02:45] VITALS: BP 113/71
[2018-08-24] MEDS: LEVOTHYROXINE 125 MCG TABLET PO SCH (05:53)
[2018-08-24 06:05] LABS: BASOPHILS # (AUTO) 0.04 x10^3/uL (0-0.1); BASOPHILS % (AUTO) 1 % (0-1); EOSINOPHILS # (AUTO) 0.31 x10^3/uL (0-0.4); EOSINOPHILS % (AUTO) 3 % (1-7); LYMPHOCYTES # (AUTO) 1.65 x10^3/uL (1-3.4); LYMPHOCYTES % (AUTO) 18 % (22-44); MD NO; MEAN CORPUSCULAR HEMOGLOBIN 32.7 pg (27.5-34.5); MEAN CORPUSCULAR HGB CONC 34.1 g/dL (33.2-36.2); MEAN PLATELET VOLUME 7.9 fL (7.4-10.4); MONOCYTES # (AUTO) 1.51 x10^3/uL (0.2-0.8); MONOCYTES % (AUTO) 17 % (2-9); NEUTROPHILS # (AUTO) 5.66 x10^3/uL (1.8-6.8); NEUTROPHILS % (AUTO) 62 % (42-75); PLATELET COUNT 154 x10^3/uL (130-400); RED BLOOD COUNT 3.76 x10^6/uL (4.38-5.82); RED CELL DISTRIBUTION WIDTH 14.2 % (9.4-14.8)
[2018-08-24 06:12] LABS: ANION GAP 13 mmol/L (5-15); CALCIUM 8.8 mg/dL (8.5-10.1); CHLORIDE 103 mmol/L (98-107); CREATININE 1.08 mg/dL (0.7-1.3)
[2018-08-24 06:55] VITALS: BP 104/64
[2018-08-24] MEDS ORDERED: FUROSEMIDE 20 MG/2 ML IV SCH (09:00)
[2018-08-24] MEDS: (Empagliflozin (Jardiance) 25 MG) HOMEMEDPO SCH (09:00)
[2018-08-24] MEDS: MUPIROCIN OINT 2%, 22GM NAS SCH ×2 (09:00→20:33)
[2018-08-24] MEDS: INSULIN LISPRO 100 UNITS/ML, PEN SQ-INSULIN SCH ×4 (09:55→20:33)
[2018-08-24] MEDS: CLOPIDOGREL 75 MG TABLET PO SCH (09:56)
[2018-08-24] MEDS: DOCUSATE 100 MG CAPSULE PO SCH ×2 (09:56→20:26)
[2018-08-24] MEDS: ASCORBIC ACID 500 MG TABLET PO SCH (09:56)
[2018-08-24] MEDS: CHOLECALCIFEROL 1,000 UNIT TABLET PO SCH (09:56)
[2018-08-24] MEDS: POTASSIUM CHLORIDE 10 MEQ TABLET.ER PO SCH (09:56)
[2018-08-24] MEDS: SENNA/DOCUSATE TABLET PO SCH (09:56)
[2018-08-24] MEDS: ASPIRIN 81 MG TABLET EC PO SCH (09:56)
[2018-08-24] MEDS: METOPROLOL TARTRATE 25 MG TABLET PO/NG SCH ×2 (09:57→20:27)
[2018-08-24] MEDS: FOLIC ACID 1 MG TABLET PO SCH (09:58)
[2018-08-24] MEDS: PIOGLITAZONE 15 MG TABLET PO SCH (09:58)
[2018-08-24] MEDS: SODIUM CHLORIDE FLUSH 10ML SYR IVF SCH ×4 (10:02→21:00)
[2018-08-24] MEDS: EZETIMIBE 10 MG TABLET PO SCH (10:22)
[2018-08-24 12:22] VITALS: BP 105/69
[2018-08-24] MEDS: MUPIROCIN OINT 2%, 22GM TP SCH ×2 (12:32→20:25)
[2018-08-24] MEDS: ENOXAPARIN 40 MG/0.4 ML SQ SCH (14:36)
[2018-08-24] MEDS: metFORMIN 500 MG TABLET PO SCH (17:20)
[2018-08-24 20:07] VITALS: BP 125/76
[2018-08-24] MEDS: NIACIN 500 MG TABLET.ER PO SCH (20:25)
[2018-08-24] MEDS: ATORVASTATIN 40 MG TABLET PO SCH (20:27)
[2018-08-24 21:10] VITALS: BP 110/73
[2018-08-24] MEDS ORDERED: AMIODARONE 900 MG in DEXTROSE 5% 482 ML IV PRN (21:30)
[2018-08-24] MEDS ORDERED: AMIODARONE 150 MG in DEXTROSE 5% 100 ML IV ONE (21:30)
[2018-08-24] MEDS: ACETAMINOPHEN 325 MG TABLET PO PRN (21:37)
[2018-08-24] MEDS ORDERED: FILTER 0.22 MICRON IV PRN (22:00)
[2018-08-25 02:15] VITALS: BP 99/66
[2018-08-25] MEDS: OXYcodone IR 5MG TABLET PO PRN ×2 (05:31→16:34)
[2018-08-25] MEDS: LEVOTHYROXINE 125 MCG TABLET PO SCH (05:31)
[2018-08-25 05:38] LABS: ANION GAP 13 mmol/L (5-15); CALCIUM 8.3 mg/dL (8.5-10.1); CHLORIDE 99 mmol/L (98-107); CREATININE 1.16 mg/dL (0.7-1.3)
[2018-08-25 06:00] LABS: MEAN CORPUSCULAR HEMOGLOBIN 32.5 pg (27.5-34.5); MEAN CORPUSCULAR HGB CONC 34.3 g/dL (33.2-36.2); MEAN CORPUSCULAR VOLUME 94.6 fL (81-97); MEAN PLATELET VOLUME 8.6 fL (7.4-10.4); PLATELET COUNT 171 x10^3/uL (130-400); RED BLOOD COUNT 3.83 x10^6/uL (4.38-5.82); RED CELL DISTRIBUTION WIDTH 13.6 % (9.4-14.8)
[2018-08-25 06:02] LABS: BASOPHILS # (AUTO) 0.05 x10^3/uL (0-0.1); BASOPHILS % (AUTO) 1 % (0-1); EOSINOPHILS # (AUTO) 0.48 x10^3/uL (0-0.4); EOSINOPHILS % (AUTO) 6 % (1-7); LYMPHOCYTES # (AUTO) 1.73 x10^3/uL (1-3.4); LYMPHOCYTES % (AUTO) 21 % (22-44); MD SCAN; MONOCYTES # (AUTO) 1.61 x10^3/uL (0.2-0.8); MONOCYTES % (AUTO) 19 % (2-9); NEUTROPHILS # (AUTO) 4.44 x10^3/uL (1.8-6.8); NEUTROPHILS % (AUTO) 53 % (42-75)
[2018-08-25] MEDS ORDERED: POTASSIUM CHLORIDE 20 MEQ TAB.ER.PRT PO ONE (07:30)
[2018-08-25 07:38] VITALS: BP 126/79
[2018-08-25] MEDS: MUPIROCIN OINT 2%, 22GM NAS SCH (09:00)
[2018-08-25] MEDS: SODIUM CHLORIDE FLUSH 10ML SYR IVF SCH ×4 (09:00→21:55)
[2018-08-25] MEDS: (Empagliflozin (Jardiance) 25 MG) HOMEMEDPO SCH (09:00)
[2018-08-25] MEDS: AMIODARONE 200 MG TABLET PO SCH ×2 (09:41→21:52)
[2018-08-25] MEDS: FOLIC ACID 1 MG TABLET PO SCH (09:41)
[2018-08-25] MEDS: EZETIMIBE 10 MG TABLET PO SCH (09:41)
[2018-08-25] MEDS: METOPROLOL TARTRATE 25 MG TABLET PO/NG SCH ×2 (09:41→21:52)
[2018-08-25] MEDS: metFORMIN 500 MG TABLET PO SCH ×2 (09:42→16:47)
[2018-08-25] MEDS: ASCORBIC ACID 500 MG TABLET PO SCH (09:42)
[2018-08-25] MEDS: POTASSIUM CHLORIDE 20 MEQ TAB.ER.PRT PO SCH (09:42)
[2018-08-25] MEDS: ASPIRIN 81 MG TABLET EC PO SCH (09:42)
[2018-08-25] MEDS: DOCUSATE 100 MG CAPSULE PO SCH ×2 (09:42→21:51)
[2018-08-25] MEDS: FUROSEMIDE 40 MG TABLET PO SCH (09:43)
[2018-08-25] MEDS: PIOGLITAZONE 15 MG TABLET PO SCH (09:43)
[2018-08-25] MEDS: CLOPIDOGREL 75 MG TABLET PO SCH (09:44)
[2018-08-25] MEDS: SENNA/DOCUSATE TABLET PO SCH (09:44)
[2018-08-25] MEDS: MUPIROCIN OINT 2%, 22GM TP SCH ×2 (09:44→21:51)
[2018-08-25] MEDS: CHOLECALCIFEROL 1,000 UNIT TABLET PO SCH (09:44)
[2018-08-25] MEDS: INSULIN LISPRO 100 UNITS/ML, PEN SQ-INSULIN SCH ×4 (09:46→21:53)
[2018-08-25 12:46] VITALS: BP 102/61
[2018-08-25] MEDS: ENOXAPARIN 40 MG/0.4 ML SQ SCH (13:48)
[2018-08-25 19:48] VITALS: BP 106/64
[2018-08-25] MEDS: NIACIN 500 MG TABLET.ER PO SCH (21:51)
[2018-08-25] MEDS: ATORVASTATIN 40 MG TABLET PO SCH (21:52)
[2018-08-25] MEDS: ACETAMINOPHEN 325 MG TABLET PO PRN (23:25)
[2018-08-26] MEDS: ACETAMINOPHEN 325 MG TABLET PO PRN ×2 (03:14→09:00)
[2018-08-26 03:23] VITALS: BP 117/67
[2018-08-26] MEDS: LEVOTHYROXINE 125 MCG TABLET PO SCH (05:22)
[2018-08-26 05:30] LABS: ANION GAP 13 mmol/L (5-15); CALCIUM 8.5 mg/dL (8.5-10.1); CHLORIDE 101 mmol/L (98-107)
[2018-08-26 05:31] LABS: CREATININE 1.04 mg/dL (0.7-1.3)
[2018-08-26] MEDS: INSULIN LISPRO 100 UNITS/ML, PEN SQ-INSULIN SCH ×2 (07:00→11:50)
[2018-08-26 07:49] VITALS: BP 118/70
[2018-08-26] MEDS: POTASSIUM CHLORIDE 20 MEQ TAB.ER.PRT PO SCH (08:49)
[2018-08-26] MEDS: SENNA/DOCUSATE TABLET PO SCH (08:50)
[2018-08-26] MEDS: DOCUSATE 100 MG CAPSULE PO SCH (08:50)
[2018-08-26] MEDS: FUROSEMIDE 40 MG TABLET PO SCH (08:51)
[2018-08-26] MEDS: PIOGLITAZONE 15 MG TABLET PO SCH (08:51)
[2018-08-26] MEDS: CLOPIDOGREL 75 MG TABLET PO SCH (08:51)
[2018-08-26] MEDS: FOLIC ACID 1 MG TABLET PO SCH (08:54)
[2018-08-26] MEDS: ASCORBIC ACID 500 MG TABLET PO SCH (08:54)
[2018-08-26] MEDS: METOPROLOL TARTRATE 25 MG TABLET PO/NG SCH (08:54)
[2018-08-26] MEDS: AMIODARONE 200 MG TABLET PO SCH (08:55)
[2018-08-26] MEDS: metFORMIN 500 MG TABLET PO SCH (08:55)
[2018-08-26] MEDS: CHOLECALCIFEROL 1,000 UNIT TABLET PO SCH (08:55)
[2018-08-26] MEDS: ASPIRIN 81 MG TABLET EC PO SCH (08:55)
[2018-08-26] MEDS: (Empagliflozin (Jardiance) 25 MG) HOMEMEDPO SCH (08:56)
[2018-08-26] MEDS: EZETIMIBE 10 MG TABLET PO SCH (09:00)
[2018-08-26] MEDS: SODIUM CHLORIDE FLUSH 10ML SYR IVF SCH ×2 (09:00→09:01)
[2018-08-26] MEDS: MUPIROCIN OINT 2%, 22GM TP SCH (09:00)
[2018-08-26] MEDS ORDERED: POTA10TA6 PO (09:38)
[2018-08-26] MEDS ORDERED: ASPI81TA45 PO (09:38)
[2018-08-26] MEDS ORDERED: FURO-93 PO (09:38)
[2018-08-26] MEDS ORDERED: AMIO400T5 PO (09:38)
[2018-08-26] MEDS ORDERED: POTASSIUM CHLORIDE 20 MEQ TAB.ER.PRT PO ONE (10:00)
[2018-08-26] MEDS ORDERED: OXYC5CAP2 PO (12:35)
== END 2018-08-26 12:53 | disposition home or self-care (01) | DRG 228 ==
LOC: ED 19:42 → EDIP 20:18 → 5SO 21:14 → CCU 08-15 12:02 → 5SO 08-16 12:53 → CSU 08-20 12:43 → 5SO 08-22 19:20 → DCLOUNGE 08-26 12:21
PROVIDERS: ADMIT Internal Medicine; ATTEND Internal Medicine
PROC: B2111ZZ Fluoroscopy of Multiple Coronary Arteries using Low Osmolar Contrast (ICD-10-PCS; 2018-08-14)
PROC: B2151ZZ Fluoroscopy of Left Heart using Low Osmolar Contrast (ICD-10-PCS; 2018-08-14)
PROC: 02703ZZ Dilation of Coronary Artery, One Artery, Percutaneous Approach (ICD-10-PCS; 2018-08-15)
PROC: 4A023N7 Measurement of Cardiac Sampling and Pressure, Left Heart, Percutaneous Approach (ICD-10-PCS; 2018-08-15)
PROC: 4A023N7 Measurement of Cardiac Sampling and Pressure, Left Heart, Percutaneous Approach (ICD-10-PCS; 2018-08-15)
PROC: B2151ZZ Fluoroscopy of Left Heart using Low Osmolar Contrast (ICD-10-PCS; 2018-08-15)
PROC: B2111ZZ Fluoroscopy of Multiple Coronary Arteries using Low Osmolar Contrast (ICD-10-PCS; 2018-08-15)
PROC: 021109W Bypass Coronary Artery, Two Arteries from Aorta with Autologous Venous Tissue, Open Approach (ICD-10-PCS; 2018-08-20)
PROC: 06BQ4ZZ Excision of Left Saphenous Vein, Percutaneous Endoscopic Approach (ICD-10-PCS; 2018-08-20)
PROC: 06BP4ZZ Excision of Right Saphenous Vein, Percutaneous Endoscopic Approach (ICD-10-PCS; 2018-08-20)
PROC: 5A1221Z Performance of Cardiac Output, Continuous (ICD-10-PCS; 2018-08-20)
PROC: 30233R1 Transfusion of Nonautologous Platelets into Peripheral Vein, Percutaneous Approach (ICD-10-PCS; 2018-08-20)
PROC: 02C00ZZ Extirpation of Matter from Coronary Artery, One Artery, Open Approach (ICD-10-PCS; principal; 2018-08-20 10:00)
DX: T82.855A Stenosis of coronary artery stent, initial encounter (principal); I50.33 Acute on chronic diastolic (congestive) heart failure; J96.90 Respiratory failure, unspecified, unspecified whether with hypoxia or hypercapnia; T85.618A Breakdown (mechanical) of other specified internal prosthetic devices, implants and grafts, initial encounter; Y92.234 Operating room of hospital as the place of occurrence of the external cause; Y71.0 Diagnostic and monitoring cardiovascular devices associated with adverse incidents; I48.92 Unspecified atrial flutter; Z99.11 Dependence on respirator [ventilator] status; J98.11 Atelectasis; I25.119 Atherosclerotic heart disease of native coronary artery with unspecified angina pectoris; E11.9 Type 2 diabetes mellitus without complications; E66.9 Obesity, unspecified; Z68.36 Body mass index [BMI] 36.0-36.9, adult; E78.5 Hyperlipidemia, unspecified; Y83.8 Other surgical procedures as the cause of abnormal reaction of the patient, or of later complication, without mention of misadventure at the time of the procedure; F41.9 Anxiety disorder, unspecified; I11.0 Hypertensive heart disease with heart failure; I35.8 Other nonrheumatic aortic valve disorders; I48.0 Paroxysmal atrial fibrillation; K76.0 Fatty (change of) liver, not elsewhere classified; K80.20 Calculus of gallbladder without cholecystitis without obstruction; Z80.0 Family history of malignant neoplasm of digestive organs; Z80.3 Family history of malignant neoplasm of breast; Z82.49 Family history of ischemic heart disease and other diseases of the circulatory system; Z83.3 Family history of diabetes mellitus; Z85.819 Personal history of malignant neoplasm of unspecified site of lip, oral cavity, and pharynx; Z85.828 Personal history of other malignant neoplasm of skin; Z87.891 Personal history of nicotine dependence; Z95.5 Presence of coronary angioplasty implant and graft; Y92.89 Other specified places as the place of occurrence of the external cause; Z79.82 Long term (current) use of aspirin; Z79.899 Other long term (current) drug therapy; Z79.84 Long term (current) use of oral hypoglycemic drugs; I25.2 Old myocardial infarction
CPT/HCPCS: 36415; 36600; 92920; 93458; 99285; S0017; 71045; 71046; 80048; 80053; 81003; 82040; 82330; 82800; 82803; 82810; 82947; 82962; 83036; 83735; 83880; 84132; 84295; 84484; 85014; 85018; 85025; 85049; 85347; 85610; 85730; 86850; 86900; 86923; 87081; 93005; 93306; 93308; 93312; 93321; 93325; 93880; 93970; 94150; 99156; 99157; C1769; C1894; G0378; J0583; J0697; J1644; J1650; J1815; J2250; J2405; J2597; J2704; J2720; J3010; J3370; J3475; J3480; J3490; P9045; 92928; C1725; C1751; C1760; C1887; J0171; J0282; J1940; J2270; J2370; J2440; J7030; J7050; J7060; J7120; P9035; Q9967

== ENCOUNTER 2020-01-26 04:13 | Inpatient (IN) | payer MEDICARE, OTHER ==
[~2020-01-26] VITALS: Ht 177.8 cm; Wt 100.1 kg
[~2020-01-26 04:13] MED LIST changes: +AMIO400T5 PO; +ASCO10004 PO; +ASPI81TA45 PO; +CHOL100012 PO; +EMPA25TA PO; -EZET10TA18 PO; +EZET10TA70 PO; +FURO-93 PO; +OXYC5CAP2 PO; -PIOG45TA4 PO; +PIOG45TA63 PO; +POTA10TA6 PO
[2020-01-26 05:00] LABS: BASOPHILS # (AUTO) 0.03 x10^3/uL (0-0.1); BASOPHILS % (AUTO) 0 % (0-1); EOSINOPHILS # (AUTO) 0.23 x10^3/uL (0-0.4); EOSINOPHILS % (AUTO) 3 % (1-7); LYMPHOCYTES # (AUTO) 2.31 x10^3/uL (1-3.4); LYMPHOCYTES % (AUTO) 32 % (22-44); MD NO; MEAN CORPUSCULAR HEMOGLOBIN 32.4 pg (27.5-34.5); MEAN CORPUSCULAR HGB CONC 33.1 g/dL (33.2-36.2); MEAN CORPUSCULAR VOLUME 97.8 fL (81-97); MEAN PLATELET VOLUME 9.1 fL (7.4-10.4); MONOCYTES # (AUTO) 0.76 x10^3/uL (0.2-0.8); MONOCYTES % (AUTO) 11 % (2-9); NEUTROPHILS % (AUTO) 53 % (42-75); PLATELET COUNT 133 x10^3/uL (130-400); RED BLOOD COUNT 5.42 x10^6/uL (4.38-5.82); RED CELL DISTRIBUTION WIDTH 16.1 % (9.4-14.8)
[2020-01-26] MEDS ORDERED: SODIUM CHLORIDE FLUSH 10ML SYR IVF ONE (05:00)
[2020-01-26 05:09] LABS: ALBUMIN 3.7 g/dL (3.4-5.0); ANION GAP 6 mmol/L (5-15); CALCIUM 9.2 mg/dL (8.5-10.1); CHLORIDE 106 mmol/L (98-107)
[2020-01-26 05:15] LABS: ALANINE AMINOTRANSFERASE 50 U/L (12-78); ALKALINE PHOSPHATASE 91 U/L (45-117); BILIRUBIN,TOTAL 1.1 mg/dL (0.2-1.0); TOTAL PROTEIN 7.5 g/dL (6.4-8.2); TROPONIN I < 0.015 ng/mL (0.000-0.045)
--- NOTE | 2020-01-26 05:20 | NUR ---
RESTING ON GURNEY, SAFETY FALL PRECAUTIONS IN PLACE. VSS. CALL LIGHT PLACED WITHIN REACH.
[2020-01-26] MEDS ORDERED: MECLIZINE CHEWABLE 25 MG TAB PO ONE (05:30)
[2020-01-26] MEDS ORDERED: MECLIZINE CHEWABLE 25 MG TAB ONE (05:32)
--- NOTE | 2020-01-26 06:09 | NUR ---
PT DECLINES AMBULATION TRIAL AT THIS TIME, STATES HE DOES NOT FEEL COMFORTABLE YET, STILL DIZZY WHEN MOVING HEAD.
--- NOTE | 2020-01-26 06:52 | NUR ---
ATTEMPTED TO AMBULATE PT, PT REPORTS DIZZINESS UPON STANDING. REPORTED TO ERP.
[2020-01-26] MEDS ORDERED: DIAZEPAM 5 MG/ML, 2ML IV ONE (07:00)
--- NOTE | 2020-01-26 07:02 | NUR ---
REPORT GIVEN TO SOMMER MANLEY.
[2020-01-26] MEDS ORDERED: DIAZEPAM 5 MG/ML, 2ML ONE (07:09)
--- NOTE | 2020-01-26 07:34 | NUR ---
PT MEDICATED PER NOV, PT DOES EXPRESS CONCERN REGARDING POTENTIAL DISCHARGE WITHOUT HIS PLOWING G[place]ENS BEING INVOLVED, ERMD/PROVIDER UPDATED. VSS AT THIS TIME
[2020-01-26] MEDS ORDERED: SODIUM CHLORIDE 0.9% 1,000 ML IV ONE (08:30)
[2020-01-26] MEDS ORDERED: ACETAMINOPHEN 325 MG TABLET PO PRN (09:30)
[2020-01-26] MEDS ORDERED: ONDANSETRON 2MG/ML, 2ML IVPush PRN (09:30)
[2020-01-26] MEDS ORDERED: hydrALAzine 20 MG/ML, 1ML IVPush PRN (09:30)
[2020-01-26 09:57] VITALS: BP 118/77
[2020-01-26] MEDS: LEVOTHYROXINE 125 MCG TABLET PO SCH (10:26)
[2020-01-26] MEDS: ASPIRIN 81 MG TABLET EC PO SCH (10:26)
[2020-01-26] MEDS: CLOPIDOGREL 75 MG TABLET PO SCH (10:26)
[2020-01-26] MEDS: INSULIN LISPRO 100 UNITS/ML, PEN SQ-INSULIN SCH ×3 (11:00→20:11)
[2020-01-26 13:47] VITALS: BP 119/76
[2020-01-26] MEDS: metFORMIN 500 MG TABLET PO SCH (17:23)
[2020-01-26 17:57] LABS: TROPONIN I < 0.015 ng/mL (0.000-0.045)
[2020-01-26 18:43] VITALS: BP 114/76
[2020-01-26 19:51] VITALS: BP 101/65
[2020-01-26 19:53] VITALS: BP 117/77
[2020-01-26 19:55] VITALS: BP 112/75
[2020-01-26] MEDS: METOPROLOL TARTRATE 50 MG TAB PO SCH (20:11)
[2020-01-26] MEDS ORDERED: ATORVASTATIN 40 MG TABLET PO SCH (21:00)
[2020-01-26 23:39] LABS: TROPONIN I < 0.015 ng/mL (0.000-0.045)
[2020-01-27 01:21] VITALS: BP 110/70
[2020-01-27 05:42] LABS: BASOPHILS # (AUTO) 0.05 x10^3/uL (0-0.1); BASOPHILS % (AUTO) 1 % (0-1); EOSINOPHILS # (AUTO) 0.22 x10^3/uL (0-0.4); EOSINOPHILS % (AUTO) 3 % (1-7); LYMPHOCYTES # (AUTO) 2.39 x10^3/uL (1-3.4); LYMPHOCYTES % (AUTO) 35 % (22-44); MD NO; MEAN CORPUSCULAR HEMOGLOBIN 32.6 pg (27.5-34.5); MEAN CORPUSCULAR HGB CONC 33.7 g/dL (33.2-36.2); MEAN CORPUSCULAR VOLUME 96.6 fL (81-97); MEAN PLATELET VOLUME 8.7 fL (7.4-10.4); MONOCYTES # (AUTO) 0.77 x10^3/uL (0.2-0.8); MONOCYTES % (AUTO) 11 % (2-9); NEUTROPHILS % (AUTO) 51 % (42-75); PLATELET COUNT 131 x10^3/uL (130-400); RED BLOOD COUNT 5.26 x10^6/uL (4.38-5.82); RED CELL DISTRIBUTION WIDTH 16.2 % (9.4-14.8)
[2020-01-27 05:54] LABS: ANION GAP 11 mmol/L (5-15); CALCIUM 8.5 mg/dL (8.5-10.1); CHLORIDE 107 mmol/L (98-107); CHOLESTEROL, TOTAL 97 mg/dL (140-239); CREATININE 0.89 mg/dL (0.7-1.3)
[2020-01-27 06:04] LABS: CHOL/HDL RATIO 1.8; HDL CHOL % 57 % (26-37); HDL CHOLESTEROL (DIRECT) 55 mg/dL (40-60); LDL CHOLESTEROL,CALCULATED 27 mg/dL (54-169); LDL/HDL RATIO 0.5 (0.5-3.0); TRIGLYCERIDES 75 mg/dL (50-200); VLDL CHOLESTEROL 15 mg/dL (0-25)
[2020-01-27] MEDS: CLOPIDOGREL 75 MG TABLET PO SCH (07:42)
[2020-01-27] MEDS: ASPIRIN 81 MG TABLET EC PO SCH (07:42)
[2020-01-27] MEDS: metFORMIN 500 MG TABLET PO SCH (07:42)
[2020-01-27] MEDS: METOPROLOL TARTRATE 50 MG TAB PO SCH (07:42)
[2020-01-27] MEDS: LEVOTHYROXINE 125 MCG TABLET PO SCH (07:42)
[2020-01-27 07:50] VITALS: BP 129/76
[2020-01-27 07:55] VITALS: BP 113/74
[2020-01-27] MEDS: INSULIN LISPRO 100 UNITS/ML, PEN SQ-INSULIN SCH (07:55)
[2020-01-27 08:00] VITALS: BP 112/74
[2020-01-27] MEDS ORDERED: EZETIMIBE 10 MG TABLET PO SCH (09:00)
[2020-01-27] MEDS ORDERED: PIOGLITAZONE 15 MG TABLET PO SCH (09:00)
[2020-01-27] MEDS ORDERED: MECL-101 PO (09:18)
[2020-01-27] MEDS ORDERED: METO50TA82 PO (09:18)
== END 2020-01-27 11:39 | disposition home or self-care (01) | DRG 149 ==
LOC: ED 04:57 → SUATTDRO 08:30 → EDIP 09:04 → 5SO 09:52
PROVIDERS: ADMIT Hospitalist; ATTEND Hospitalist
DX: H81.10 Benign paroxysmal vertigo, unspecified ear (principal); E03.9 Hypothyroidism, unspecified; E11.9 Type 2 diabetes mellitus without complications; E78.5 Hyperlipidemia, unspecified; I10 Essential (primary) hypertension; I25.10 Atherosclerotic heart disease of native coronary artery without angina pectoris; I25.2 Old myocardial infarction; Z85.828 Personal history of other malignant neoplasm of skin; Z95.1 Presence of aortocoronary bypass graft; Z95.5 Presence of coronary angioplasty implant and graft
CPT/HCPCS: 36415; 70551; 71045; 80048; 80053; 80061; 82962; 84443; 84484; 85025; 93005; 93880; G0378; J3360; J1815; J7030